=== PATIENT | female | born 1950 | race Asian ===

== ENCOUNTER → 2016-09-30 | Outpatient (CLI) | payer MEDICARE, BC ==
[~2016-09-30] MED LIST: ASPIRIN 32325 MG/TAB PO; COZAAR 50MG50 MG/TAB PO; HCTZ 25MG TAB25 MG PO; KLOR-CON 1010 MEQ PO; PRIL40 PO; PRINIVIL40 MG PO; ZYLOPRIM 100MG100 MG PO
== END ==
LOC: MC.RAD 07:20
DX: Z12.31 Encounter for screening mammogram for malignant neoplasm of breast (principal)

== ENCOUNTER 2016-10-24 07:45 | Day surgery (SDC) | payer MEDICARE, BC ==
[~2016-10-24] VITALS: Ht 160 cm; Wt 75.3 kg
[~2016-10-24 07:45] MED LIST changes: -COZAAR 50MG50 MG/TAB PO
[2016-10-24 08:16] VITALS: BP 129/72; PULSE 66; TEMP 97.9
[2016-10-24] MEDS ORDERED: COZAAR 50MG50 MG/TAB PO (08:27)
[2016-10-24 09:45] VITALS: BP 111/62; PULSE 62; TEMP 97.6
[2016-10-24 10:00] VITALS: BP 104/55; PULSE 55
[2016-10-24 10:15] VITALS: BP 120/53; PULSE 58
[2016-10-24 10:30] VITALS: BP 113/75; PULSE 56
== END 2016-10-24 10:42 | disposition home or self-care (01) ==
LOC: SDCO 07:45
DX: K21.9 Gastro-esophageal reflux disease without esophagitis (principal); K29.30 Chronic superficial gastritis without bleeding; J45.909 Unspecified asthma, uncomplicated; Z83.71 Family history of colonic polyps; I10 Essential (primary) hypertension; Z87.891 Personal history of nicotine dependence; Z79.899 Other long term (current) drug therapy
CPT/HCPCS: OP; J2250; J3010; J7030

== ENCOUNTER → 2017-11-23 | Outpatient (CLI) | payer MEDICARE, BC ==
[~2017-11-23] MED LIST changes: +COZAAR 50MG50 MG/TAB PO
== END ==
LOC: MC.RAD 08:00
DX: Z12.31 Encounter for screening mammogram for malignant neoplasm of breast (principal)

== ENCOUNTER 2019-08-16 09:01 | Emergency (ER) | payer MEDICARE, OTHER ==
[~2019-08-16] VITALS: Ht 160 cm; Wt 72.7 kg
[2019-08-16 09:08] VITALS: TEMP 98.1
[2019-08-16 09:51] LABS: BASO # 0.1 (0.0-0.2); BASO % 0.9 % (0.0-2.0); EOS # 0.3 (0.0-0.7); EOS % 3.4 % (0-4.0); GRAN # 4.3 (1.4-6.5); GRAN % 55.3 % (42.2-75.2); HEMATOCRIT 39.8 % (37.0-47.0); HEMOGLOBIN 13.3 g/dl (12.5-16.0); LYMPH # 2.8 (1.2-3.4); LYMPH % 35.5 % (20.0-51.0); MEAN CELL VOLUME 87 fl (80.0-100.0); MEAN CORPUSCULAR HEMOGLOBIN 29 pg (27.0-31.0); MEAN CORPUSCULAR HGB CONC 33 g/dl (33.0-37.0); MEAN PLATELET VOLUME 8.3 fl (7.4-10.4); MONO # 0.3 (0.1-0.6); MONO % 4.4 % (1.7-9.3); PLATELET COUNT 395 K/mm3 (130-400); RED BLOOD COUNT 4.57 M/mm3 (4.10-5.30); REDCELL DISTRIBUTION WIDTH-CV 13.2 % (11.5-14.5)
[2019-08-16 10:04] LABS: ALBUMIN 4.4 gm/dL (3.5-5.0); BILIRUBIN,TOTAL 0.6 mg/dL (0.0-1.0); C-REACTIVE PROTEIN 2.1 mg/dL (0.0-0.9); CALCIUM 9.5 mg/dL (8.4-10.2); CREATININE, serum 1.21 (0.52-1.25); POTASSIUM 4.1 mmol/L (3.4-5.0); TOTAL PROTEIN 8.1 gm/dL (6.4-8.2)
[2019-08-16 13:10] VITALS: BP 125/65; PULSE 70
== END 2019-08-16 13:11 | disposition home or self-care (01) ==
LOC: COL.ER 09:01
PROVIDERS: Nurse Practitioner
DX: K62.5 Hemorrhage of anus and rectum (principal); I10 Essential (primary) hypertension; Z90.710 Acquired absence of both cervix and uterus; Z90.89 Acquired absence of other organs; Z98.890 Other specified postprocedural states

== ENCOUNTER → 2020-03-28 | Outpatient (CLI) | payer SELFPAY | LOC: EDSTATUS 15:04 → ZCOL.LAB 17:31 | DX: U07.1 COVID-19 (principal) ==